=== PATIENT | female | born 1965 | race African-American/Black ===

== ENCOUNTER 2019-10-17 14:01 | Emergency (ER) | payer BC ==
--- NOTE | 2019-10-17 15:03 | ER Document Report ---
ED Medical Screen (RME) - General Chief Complaint: Numbness Stated Complaint: RIGHT BACK PAIN Time Seen by Provider: 10/17/19 14:46 Primary Care Provider: MAGDALENA FONSECA MD [Primary Care Provider] - Follow up as needed TRAVEL OUTSIDE OF THE [place] IN LAST 30 DAYS: No - HPI Notes: 10/17/19 15:00 54-year-old female presents the ED with complaints of having right back numbness and tingling that extends her before her pelvic area for the last 3 days, states she has had back pain for the last 3 weeks. Patient states she did have a rash 3 weeks ago on her lower back, however it went away. denies any bowel or bladder dysfunction. Denies any weakness, ambulating without issues. Her PCP, Dr. Fonseca prescribed her anti-inflammatory and muscle relaxers, she states these did not help. Denies any recent trauma. Denies any shortness of breath, chest pain. Reports numbness or tingling does not disc extend down her legs. Denies history of chronic back pain. I have greeted and performed a rapid initial assessment of this patient. A comprehensive ED assessment and evaluation of the patient, analysis of test results and completion of the medical decision making process will be conducted by additional ED providers. PHYSICAL EXAMINATION: GENERAL: Well-appearing, well-nourished and in no acute distress. NECK: Normal range of motion CV: s1, s2 regular LUNGS: No respiratory distress Musculoskeletal: Normal range of motion NEUROLOGICAL: Normal speech, normal gait. Reports numbness to right waist on palpation. No rashes. dtr+2 in BLE equally. SKIN: Warm, Dry, normal turgor, no rashes or lesions noted. - Related Data Allergies/Adverse Reactions: acetaminophen [From Percocet] Allergy (Severe, Verified 10/17/19 14:48) Hives oxycodone HCl [From Percocet] Allergy (Severe, Verified 10/17/19 14:48) Hives Home Medications: vit d2, pravastatin, losartan/hctz Past Medical History - Social History Frequency of alcohol use: None Drug Abuse: None - Past Medical History Cardiac Medical History: Reports: Hx Hypertension - Immunizations Hx Diphtheria, Pertussis, Tetanus Vaccination: Yes Physical Exam - Vital signs Vitals: Temp Pulse Resp BP Pulse Ox 97.4 F 64 18 190/88 H 99 10/17/19 14:58 10/17/19 14:58 10/17/19 14:58 10/17/19 14:58 10/17/19 14:58 Course - Vital Signs Vital signs: Temp Pulse Resp BP Pulse Ox 97.4 F 64 18 190/88 H 99 10/17/19 14:58 10/17/19 14:58 10/17/19 14:58 10/17/19 14:58 10/17/19 14:58 Doctor's Discharge - Discharge Referrals: MAGDALENA FONSECA MD [Primary Care Provider] - Follow up as needed
[2019-10-17] MEDS ORDERED: PREDNISONE 20 MG TABLET PO ONE (17:14)
[2019-10-17] MEDS ORDERED: KETOROLAC TROMETHAMINE 60 MG/2 ML SDV IM ONE (17:14)
[2019-10-17] MEDS ORDERED: GABAPENTIN 300 MG CAPSULE PO ONE (17:15)
[2019-10-17 17:17] LABS: ABSOLUTE EOSINOPHILS # (AUTO) 0.2 10^3/uL (0.0-0.6); ABSOLUTE LYMPHOCYTES (AUTO) 2.3 10^3/uL (0.5-4.7); ABSOLUTE MONOCYTES (AUTO) 0.6 10^3/uL (0.1-1.4); ABSOLUTE NEUT (AUTO) 5.8 10^3/uL (1.7-8.2); BASOPHILS % (AUTO) 0.4 % (0-2); EOSINOPHILS % (AUTO) 1.7 % (0-6); HEMATOCRIT 36.9 % (36.0-47.0); HEMOGLOBIN 12.5 g/dL (12.0-15.5); LYMPHOCYTES % (AUTO) 25.8 % (13-45); MEAN CORPUSCULAR HEMOGLOBIN 27.1 pg (27.0-33.4); MEAN CORPUSCULAR HGB CONC 33.8 g/dL (32.0-36.0); MEAN CORPUSCULAR VOLUME 80 fl (80-97); MONOCYTES % (AUTO) 7.2 % (3-13); PLATELET COUNT 282 10^3/uL (150-450); RED CELL DISTRIBUTION WIDTH 14.4 % (11.5-14.0); SEGMENTED NEUTROPHILS % (AUTO) 64.9 % (42-78); TOTAL CELLS COUNTED % (AUTO) 100 %
--- NOTE | 2019-10-17 17:21 | ER Document Report ---
ED General - General Chief Complaint: Numbness Stated Complaint: RIGHT BACK PAIN Time Seen by Provider: 10/17/19 14:46 Primary Care Provider: AMBROCIO ADAM MD [COMMUNITY BASED STAFF] - Follow up as needed MAGDALENA FONSECA MD [Primary Care Provider] - Follow up as needed MARK LEÓN MD [ACTIVE STAFF] - Follow up as needed Notes: CHIEF COMPLAINT: Numbness and pain in the right back HPI: 54-year-old obese female with a history of hypertension presenting to the emergency department complaining of numbness and tingling in the right lateral back with pain over the last 3 days. No incontinence of urine or bowel denies abdominal pain. Denies fever. Denies dysuria. Denies nausea or vomiting. Patient states that she had back pain in the right back that seemed to extend from the area just below the scapula on the right now down into the right lower back region. States she saw her PCP for this and was prescribed a muscle relaxer and an anti-inflammatory but states they are not helping with the discomfort. Patient states that 3 weeks ago she also had a small rash that appeared over the sacral area of the back. States it appeared to be fairly raised but also dry skin, no vesicles. The rash has resolved at this point ROS: See HPI - all other systems were reviewed and are otherwise negative Constitutional: no fever Eyes: no drainage, no blurred vision ENT: no runny nose, no sore throat Cardiovascular: no chest pain Resp: no SOB, no cough GI: no vomiting, no diarrhea, no abdominal pain : no dysuria Integumentary: no rash Allergy: no hives Musculoskeletal: no extremity pain or swelling Neurological: + numbness/tingling, no weakness MEDICATIONS: I agree with the patient medications as charted by the RN. ALLERGIES: I agree with the allergies as charted by the RN. PAST MEDICAL HISTORY/PAST SURGICAL HISTORY: Reviewed and agree as charted by RN. SOCIAL HISTORY: Reviewed and agree as charted by RN. FAMILY HISTORY: No significant familial comorbid conditions directly related to patient complaint EXAM: Reviewed vital signs as charted by RN. CONSTITUTIONAL: Alert and oriented and responds appropriately to questions. Well-appearing; well-nourished, mild distress secondary to discomfort HEAD: Normocephalic; atraumatic EYES: PERRL; Conjunctivae clear, sclerae non-icteric ENT: normal nose; no rhinorrhea; moist mucous membranes; pharynx without lesions noted, no uvula edema or deviation, no tonsillar hypertrophy, phonation normal NECK: Supple without meningismus; non-tender; no cervical lymphadenopathy, no masses CARD: RRR; no murmurs, no clicks, no rubs, no gallops; symmetric distal pulses RESP: Normal chest excursion without splinting or tachypnea; breath sounds clear and equal bilaterally; no wheezes, no rhonchi, no rales, pulse oximetry ABD/GI: Obese, normal bowel sounds; non-distended; soft, non-tender, no rebound, no guarding; no palpable organomegaly or masses. BACK: The back appears normal and is mildly tender to palpation over the lower thoracic and over the lumbar spine in the right paraspinous musculature and laterally over the right back. Patient has no visible rash on the thorax. She has decreased sensation subjectively extending from T10 area down through the top of the sacrum and around to the right flank at approximately the mid axillary line, there is no CVA tenderness EXT: Normal ROM in all joints; non-tender to palpation; no cyanosis, no effusions, no edema SKIN: Normal color for age and race; warm; dry; good turgor; no acute lesions noted NEURO: Moves all extremities equally; Motor and sensory function intact. No saddle anesthesia on exam. Strength equal 5/5 bilateral lower extremities. DTRs 2+ intact and equal bilateral lower extremities. Gait is normal PSYCH: The patient's mood and manner are appropriate. Grooming and personal hygiene are appropriate. MDM: 54-year-old female presenting for painful numbness in the right lateral back that seems to cross several radicular lines, no visible rash at this time suggesting shingles although patient symptoms do sound suspiciously like postherpetic neuralgia. She has no incontinence that would suggest saddle anesthesia, no perineal numbness. Low suspicion for cauda equina. Initial work-up through triage process. Will add thoracic spine x-ray. Given the radicular symptoms if imaging studies do not show bone lesion or other significant findings anticipate discharge on gabapentin, steroids, pain medication with referral to orthopedics or neurology TRAVEL OUTSIDE OF THE [place] IN LAST 30 DAYS: No - Related Data Allergies/Adverse Reactions: acetaminophen [From Percocet] Allergy (Severe, Verified 10/17/19 14:48) Hives oxycodone HCl [From Percocet] Allergy (Severe, Verified 10/17/19 14:48) Hives Home Medications: vit d2, pravastatin, losartan/hctz Past Medical History - Social History Smoking Status: Never Smoker Frequency of alcohol use: None Drug Abuse: None Family History: Other Patient has suicidal ideation: No Patient has homicidal ideation: No - Past Medical History Cardiac Medical History: Reports: Hx Hypertension - Immunizations Hx Diphtheria, Pertussis, Tetanus Vaccination: Yes Physical Exam - Vital signs Vitals: Temp Pulse Resp BP Pulse Ox 97.4 F 64 18 190/88 H 99 10/17/19 14:58 10/17/19 14:58 10/17/19 14:58 10/17/19 14:58 10/17/19 14:58 Course - Re-evaluation Re-evalutation: 10/17/19 17:46 Lab work does not show any acute emergent abnormalities. Awaiting imaging studies for disposition 10/17/19 18:45 I discussed evaluation at length with the patient. We discussed results. Mild disc bulge at L4-5 and L5-S1. Not in the right distribution for her symptoms. She has a lateral radiculopathy that may be cutaneous in nature without a visible rash. She states that the discomfort did improve slightly after the medication she received here. I will plan to keep patient on gabapentin, short course of pain medication, she states that she can take hydrocodone. I will also place her on a course of steroids. She will be referred to orthopedics and neurology for further work-up and evaluation she is also to call her PCP for follow-up - Vital Signs Vital signs: Temp Pulse Resp BP Pulse Ox 97.4 F 64 18 190/88 H 99 10/17/19 14:58 10/17/19 14:58 10/17/19 14:58 10/17/19 14:58 10/17/19 14:58 - Laboratory Result Diagrams: 10/17/19 16:57 10/17/19 16:57 Laboratory results interpreted by me: 10/17/19 10/17/19 16:57 16:57 RDW 14.4 H Est GFR (MDRD) Non-Af 59 L Discharge - Discharge Clinical Impression: Radiculopathy of lumbar region Condition: Stable Disposition: HOME, SELF-CARE Additional Instructions: Take the medications as prescribed, no driving if taking Vicodin for pain. Follow-up closely with your primary care provider, neurology and orthopedics for further evaluation and management call for appointments. Watch for onset of a rash in the area of the pain distribution. Your lab work and imaging studies today did not show acute emergent abnormalities Prescriptions: Prednisone [Deltasone 20 mg Tablet] 2 tab PO DAILY 5 Days tablet Gabapentin [Neurontin 100 mg Capsule] 100 mg PO TID #30 capsule Hydrocodone/Acetaminophen [Greenback 5-325 mg Tablet] 1 tab PO Q4 PRN #12 tablet PRN Reason: Referrals: MAGDALENA FONSECA MD [Primary Care Provider] - Follow up as needed MARK LEÓN MD [ACTIVE STAFF] - Follow up as needed AMBROCIO ADAM MD [COMMUNITY BASED STAFF] - Follow up as needed
[2019-10-17 17:22] LABS: APPEARANCE,URINE CLEAR; BILIRUBIN,URINE NEGATIVE (NEGATIVE); COLOR,URINE YELLOW; GLUCOSE, URINE NEGATIVE (NEGATIVE); KETONES,URINE NEGATIVE (NEGATIVE); LEUKOCYTE ESTERASE,URINE NEGATIVE (NEGATIVE); NITRITE,URINE NEGATIVE (NEGATIVE); PROTEIN,URINE NEGATIVE (NEGATIVE); URINE SPECIFIC GRAVITY 1.013; UROBILINOGEN,URINE NEGATIVE mg/dL (<2.0)
[2019-10-17 17:43] LABS: ALBUMIN 4.2 g/dL (3.5-5.0); ALKALINE PHOSPHATASE 112 U/L (38-126); ANION GAP 10 (5-19); ASPARTATE AMINO TRANSFERASE 21 U/L (14-36); BILIRUBIN,DIRECT 0.3 mg/dL (0.0-0.4); BILIRUBIN,TOTAL 0.5 mg/dL (0.2-1.3); BLOOD UREA NITROGEN 15 mg/dL (7-20); CALCIUM 9.6 mg/dL (8.4-10.2); CARBON DIOXIDE 29 mmol/L (22-30); CHLORIDE 104 mmol/L (98-107); GLUCOSE 94 mg/dL (75-110); POTASSIUM 3.9 mmol/L (3.6-5.0); TOTAL PROTEIN 8.1 g/dL (6.3-8.2)
--- NOTE | 2019-10-17 18:22 | RADIOLOGY REPORT (SQ) ---
EXAM DESCRIPTION: CT LUMBAR SPINE WITHOUT COMPLETED DATE/TIME: 10/17/2019 6:00 pm REASON FOR STUDY: R lumbar n/t COMPARISON: None. TECHNIQUE: Axial images acquired through the lumbar spine without intravenous contrast. Images revi ewed with lung, soft tissue and bone windows. Reconstructed coronal and sagittal MPR images reviewed . All images stored on PACS. All CT scanners at this facility use dose modulation, iterative reconstruction, and/or weight based d osing when appropriate to reduce radiation dose to as low as reasonably achievable (ALARA). [facility]: Dose Right [facility]: CareDose [facility]: Dose Right [facility]: Teradose 4D [facility]: Fare Motion RADIATION DOSE: 34mGy. LIMITATIONS: None. FINDINGS: SEGMENTATION: Normal. No transitional anatomy. ALIGNMENT: Normal. VERTEBRAL BODIES: No fractures. No dislocation. No acute findings. DISCS: T11-12, T12-L1, L1-2, L2-3, and L3-4 are unremarkable. At L4-5, mild to moderate central canal stenosis results from broad diffuse posterior disc bulging an d bulky bilateral facet and ligament hypertrophy. This is best shown on axial image 64/99. There is moderate right and mild left foraminal narrowing without exit L4 nerve root impingement. At L5-S1, a central and left paracentral disc herniation is present containing nitrogen from the disc space. This flattens the thecal sac left greater than right at the takeoff of the bilateral S1 nerv e roots in the lateral recess, best shown on axial image 75 and sagittal image 23. Moderate bilatera l foraminal narrowing is present. PEDICLES, TRANSVERSE PROCESSES: No fractures. No dislocation. No acute findings. FACETS, POSTERIOR ELEMENTS: No fractures. No dislocation. HARDWARE: None in the spine. VISUALIZED RIBS: No fractures. SOFT TISSUES: No significant or acute finding in adjacent soft tissues. OTHER: Vacuum phenomenon bilateral SI joints IMPRESSION: Degenerative disc changes most pronounced at L4-5 and L5-S1 TECHNICAL DOCUMENTATION: JOB ID: [id number] Quality ID # [id number]: Final reports with documentation of one or more dose reduction techniques (e.g., Au tomated exposure control, adjustment of the mA and/or kV according to patient size, use of iterative reconstruction technique) 2010 [employer]- All Rights Reserved Reading location - IP/workstation name: [facility]
--- NOTE | 2019-10-17 18:24 | RADIOLOGY REPORT (SQ) ---
EXAM DESCRIPTION: T SPINE AP/LAT COMPLETED DATE/TIME: 10/17/2019 5:48 pm REASON FOR STUDY: right back pain COMPARISON: None. NUMBER OF VIEWS: Two views. TECHNIQUE: AP and lateral radiographic images acquired of the thoracic spine. LIMITATIONS: None. FINDINGS: MINERALIZATION: Normal. ALIGNMENT: Normal. No scoliosis. VERTEBRAE: No fracture or bone lesion. Maintained height, normal segmentation. DISCS: Mild disc space loss of height with osteophyte formation at T6-7, T7-8, T8-9, T9-10, T10-11. HARDWARE: None in the spine. MEDIASTINUM AND SOFT TISSUES: Normal heart size and aortic contour. No soft tissue abnormality. VISUALIZED LUNG CABA: Clear. OTHER: No other significant finding. IMPRESSION: No acute findings TECHNICAL DOCUMENTATION: JOB ID: [id number] [email or web address]- All Rights Reserved Reading location - IP/workstation name: [email or web address]
[2019-10-17 19:21] VITALS: BP 175/94
== END 2019-10-17 19:26 | disposition home or self-care (01) ==
LOC: ER 14:01
DX: M54.16 Radiculopathy, lumbar region (principal); R20.0 Anesthesia of skin; M54.9 Dorsalgia, unspecified; I10 Essential (primary) hypertension; Z79.899 Other long term (current) drug therapy
CPT/HCPCS: 99284; 96372; 36415; 85025; 80053; 81001; 72070; 72131; J1885; J7512